=== PATIENT | male | born 1965 | race Caucasian/White ===

== ENCOUNTER 2018-02-28 15:34 | Emergency (ER) | payer SELFPAY ==
--- NOTE | 2018-02-28 15:37 | PDOC ---
Rapid Medical Evaluation Time Seen by Provider: 02/28/18 15:35 Medical Evaluation: I have performed a brief in-person evaluation of this patient. The patient presents with a chief complaint of: left finger laceration Pertinent physical exam findings: 1cm lac to base of left thumb I have ordered the following: nothing The patient will proceed to the ED for further evaluation. Discharge Disposition - Diagnosis Hand laceration - Referrals - Patient Instructions - Post Discharge Activity
[2018-02-28 15:41] VITALS: BP 123/87; PULSE 78; TEMP 98.3; BMI 33.0
--- NOTE | 2018-02-28 15:51 | PDOC ---
History of Present Illness - General Chief Complaint: Injury Stated Complaint: LT HAND LACERATION Time Seen by Provider: 02/28/18 15:35 History Source: Patient - History of Present Illness Initial Comments: 02/28/18 16:27 Chief complaint: Hand laceration Patient is a 52-year-old male who states he cut his hand at home with a knife. Unknown tetanus. Denies medical problems. GENERAL/CONSTITUTIONAL: No fever, weakness. dizziness HEAD, EYES, EARS, NOSE AND THROAT: No change in vision. No ear pain or discharge. No sore throat. CARDIOVASCULAR: No chest pain RESPIRATORY: No shortness of breath or cough GASTROINTESTINAL: No pain, nausea, vomiting, diarrhea or constipation GENITOURINARY: No dysuria MUSCULOSKELETAL: No neck or back pain SKIN: No rash, + laceration NEUROLOGIC: No headache, vertigo, loss of consciousness, or loss of sensation. GENERAL: The patient is awake, alert, and fully oriented, in no acute distress. HEAD: Normal with no signs of trauma. EYES: Pupils equal, round and reactive to light, sclera anicteric, conjunctiva clear. ENT: pharynx: no erythema, no exudate, uvula midline NECK: supple CHEST: clear, nontender, rr EXTREMITIES: Left hand with 1.5 cm laceration left thenar, full range of motion , neurovascular intact. Rest of extremities, normal range of motion, no edema. NEUROLOGICAL: Normal speech, normal gait. SKIN: Warm, Dry Past History - Past Medical History Allergies/Adverse Reactions: Allergies Allergy/AdvReac Type Severity Reaction Status Date / Time aspirin Allergy Verified 02/28/18 15:35 Home Medications: Ambulatory Orders NK [No Known Home Medication] 02/28/18 COPD: No - Surgical History Abdominal Surgery: Yes (GASTRIC BYPASS,HERNIA) Appendectomy: Yes - Suicide/Smoking/Psychosocial Hx Smoking History: Never smoked Have you smoked in the past 12 months: No Information on smoking cessation initiated: No Hx Alcohol Use: No Drug/Substance Use Hx: No Substance Use Type: None *Physical Exam - Vital Signs Last Vital Signs Temp Pulse Resp BP Pulse Ox 98.3 F 78 18 123/87 95 02/28/18 15:36 02/28/18 15:36 02/28/18 15:36 02/28/18 15:36 02/28/18 15:36 Procedures - Laceration/Wound Repair Left Hand Wound Length: to 2.5 cm Wound Explored: clean Wound's Depth, Shape: superficial, linear Irrigated w/ Saline: Yes Betadine Prep: Yes Anesthesia: 2% Lidocaine Suture Size/Type: 5:0 Number of Sutures: 4 Sterile Dressing Applied: Yes Medical Decision Making - Medical Decision Making 02/28/18 16:28 Patient with simple laceration to left hand, thenar area with no signs of tendon injury and his neurovascular intact. Patient needs tetanus update. *DC/Admit/Observation/Transfer Diagnosis at time of Disposition: Hand laceration Qualifiers: Encounter type: initial encounter Foreign body presence: without foreign body Laterality: left Qualified Code(s): S61.412A - Laceration without foreign body of left hand, initial encounter - Discharge Dispostion Disposition: HOME Condition at time of disposition: Stable - Referrals - Patient Instructions Printed Discharge Instructions: DI for Laceration Repair Additional Instructions: Do not get wet for 2 days. Apply bacitracin several times a day. After this you can gently clean it with soap and water and apply bacitracin at least 2 times daily. Have reevaluated if redness, pus or getting worse. Have sutures evaluated for removal in 7-10 days - Post Discharge Activity
[2018-02-28] MEDS ORDERED: DIPHTH,PERTUSS(ACELL),TET 0.5 ML DISP.SYRIN IM ONE (15:56)
== END 2018-02-28 16:22 | disposition home or self-care (01) ==
LOC: JERFT 15:34
PROC: 3E0234Z Introduction of Serum, Toxoid and Vaccine into Muscle, Percutaneous Approach (ICD-10-PCS; principal; 2018-02-28)
PROC: 0HQGXZZ Repair Left Hand Skin, External Approach (ICD-10-PCS; 2018-02-28)
DX: S61.412A Laceration without foreign body of left hand, initial encounter (principal); W29.1XXA Contact with electric knife, initial encounter; Y93.89 Activity, other specified; Y92.038 Other place in apartment as the place of occurrence of the external cause; Y99.8 Other external cause status
CPT/HCPCS: 90715; 99281-25